=== PATIENT | female | born 1935 | race Caucasian/White ===

== ENCOUNTER → 2016-10-12 | Outpatient (CLI) | payer MEDICARE ==
[~2016-10-12] MED LIST: ANTIVERT 25MG25 MG PO; ASPI325T6 PO; ASPIRIN 81M81 MG/TA2 PO; ASPIRIN E.C. 8181 MG PO; ASPRIN; CLARITIN 1010 MG/TAB PO; DYRENIUM 50MG C50 MG PO; FERROUS SU325 MG/TAB PO; FISH OIL1000 MG PO; FOLIC ACID 40400 MCG PO; GLUCOSAMINE & C1 TAB PO; LASIX 20MG TABL20 MG PO; LIPITOR 40MG TA40 MG PO; LOPRESSOR 550 MG/TAB PO; MELATONIN1 MG PO; MULTIPLE VITAMI1 CAP PO; NORCO 325 MG-7.1 TAB PO; PERIDEX (CHLOR480 ML MM; PROTONIX20 MG PO; ROXICODONE 55 MG/TAB PO; SENOKOT S 50 MG1 TAB PO; TYLENOL 500MG500 MG PO; TYLENOL ARTHRITIS PO; VIT E; VITAMIN C500 MG PO; VITAMIN D 400400 IU PO; VITAMIN E28000 IU PO; VTAMINC250TA PO; ZANTAC 150MG T150 MG PO; ZANTAC150 MG PO; ZYLOPRIM 100MG100 MG PO; [UNRECOGNIZED DRUG - CODE] PO
== END ==
LOC: COL.RAD 08:25
DX: M79.605 Pain in left leg (principal); I83.813 Varicose veins of bilateral lower extremities with pain; I72.2 Aneurysm of renal artery; Z90.49 Acquired absence of other specified parts of digestive tract; Z90.710 Acquired absence of both cervix and uterus
CPT/HCPCS: Q9967

== ENCOUNTER 2018-11-16 12:43 | Inpatient (IN) | payer MEDICARE ==
[~2018-11-16] VITALS: Ht 162.6 cm; Wt 106.8 kg
[2019-01-08] VITALS (9 sets, daily range): BP systolic 96–152; BP diastolic 45–66; PULSE 48–68; TEMP 97–98.6
[2019-01-08] MEDS ORDERED: COZAAR100 MG PO (07:42)
[2019-01-08] MEDS ORDERED: ASPIRIN 81M81 MG/TA2 PO (07:42)
[2019-01-08] MEDS ORDERED: ZANTAC 150MG T150 MG PO (07:43)
[2019-01-09 06:29] VITALS: BP 135/63; PULSE 62; TEMP 97.8
[2019-01-09 08:19] LABS: HEMOGLOBIN 11.2 g/dl (12.5-16.0)
[2019-01-09 08:22] LABS: HEMATOCRIT 34.7 % (37.0-47.0)
[2019-01-09 08:35] VITALS: BP 147/60; PULSE 64; TEMP 97.4
[2019-01-09 12:44] VITALS: BP 146/73; PULSE 61; TEMP 98.1
[2019-01-09 16:50] VITALS: BP 138/83; PULSE 68; TEMP 97.7
[2019-01-09 20:34] VITALS: BP 145/63; PULSE 68; TEMP 97.9
[2019-01-10] VITALS (7 sets, daily range): BP systolic 113–151; BP diastolic 40–66; PULSE 60–69; TEMP 97.4–98.2
[2019-01-10 07:43] LABS: HEMOGLOBIN 11.6 g/dl (12.5-16.0)
[2019-01-10 07:48] LABS: HEMATOCRIT 34.5 % (37.0-47.0)
[2019-01-11 03:10] VITALS: BP 142/54; PULSE 62; TEMP 97.5
[2019-01-11] MEDS ORDERED: ASPI325T6 PO (07:25)
[2019-01-11] MEDS ORDERED: ULTRAM 50MG TAB50 MG PO (07:25)
[2019-01-11 08:31] VITALS: BP 148/68; PULSE 65; TEMP 98
[2019-01-11 12:00] VITALS: BP 116/51; PULSE 64; TEMP 97.6
== END 2019-01-11 15:20 | disposition home health service (06) | DRG 470 ==
LOC: JCC 01-08 06:23
PROVIDERS: ADMIT Orthopaedic Surgery
PROC: 0SRD0J9 Replacement of Left Knee Joint with Synthetic Substitute, Cemented, Open Approach (ICD-10-PCS; principal; 2019-01-08 09:00)
DX: M17.12 Unilateral primary osteoarthritis, left knee (principal); M10.9 Gout, unspecified; I10 Essential (primary) hypertension; E78.00 Pure hypercholesterolemia, unspecified; R11.0 Nausea; G47.33 Obstructive sleep apnea (adult) (pediatric); J40 Bronchitis, not specified as acute or chronic; D64.9 Anemia, unspecified; Z96.651 Presence of right artificial knee joint; Z95.0 Presence of cardiac pacemaker; Z79.82 Long term (current) use of aspirin; Z90.710 Acquired absence of both cervix and uterus; Z88.5 Allergy status to narcotic agent; Z99.81 Dependence on supplemental oxygen
CPT/HCPCS: A4314; A9284; C1776; J0690; J2250; J2274; J2405; J2550; J2704; J3010; J7030; J7120